=== PATIENT | female | born 1980 | race American Indian/Alaskan Native ===

== ENCOUNTER 2016-12-18 19:42 | Emergency (ER) | payer SELFPAY ==
[2016-12-18 21:08] LABS: Bilirubin,Urine NEG (Negative); Blood,Urine LG (Negative); Ketones,Urine NEG (Negative); Leukocyte Esterase,Urine NEG (Negative); Mucus,Urine 2+ /HPF; Nitrite,Urine NEG (Negative)
[2016-12-18] MEDS ORDERED: TORADOL IM ONE (23:29)
--- NOTE | 2016-12-18 23:30 | Emergency Department Report ---
ED Back Pain/Injury HPI - General Chief Complaint: Back Pain/Injury Stated Complaint: BACK/HIP PAIN Time Seen by Provider: 12/18/16 22:05 Source: patient Limitations: No Limitations - History of Present Illness Initial Comments: Patient here complaining of back. That's radiated down her back to her right side. This started yesterday. Denies any injury she's had similar incident in the past. Denies any urinary burning frequency or urgency. Denies any nausea or vomiting. Denies any abdominal pain. Denies any vaginal discharge or bleeding. Patient is currently on her menses that started 12/16/2016. Pain is described as 8 out of 10 and a kin with radiation down her right side. She says she tried [id number] pain medication but it didn't help. Denies any numbness or tingling to extremities. Denies any nausea or vomiting. Denies any fall or direct trauma. MD Complaint: back pain Onset/Timin -: days(s) Similar Symptoms Previously: Yes Place: home Radiation: other (right thigh) Severity: severe Severity scale (0 -10): 8 Quality: aching Consistency: constant Improves With: immobilization Worsens With: movement Context: unknown Associated Symptoms: denies: confusion, weakness, chest pain, numbness, difficulty walking, cough, difficulty urinating, diaphoresis, incontinence, fever/chills, constipation, headaches, abdominal pain, loss of appetite, malaise , nausea/vomiting, rash, seizure, shortness of breath, syncope Treatments Prior to Arrival: NSAIDS - Related Data Previous Rx's Medication Instructions Recorded Last Taken Type Naproxen [Naprosyn TAB] 500 mg PO BID PRN #10 tablet 12/19/16 Unknown Rx Allergies Allergy/AdvReac Type Severity Reaction Status Date / Time No Known Allergies Allergy Unverified 12/18/16 20:21 ED Review of Systems ROS: Stated complaint: BACK/HIP PAIN Other details as noted in HPI Comment: All other systems reviewed and negative Constitutional: denies: chills, fever ENT: denies: ear pain, throat pain, epistaxis, congestion Respiratory: no symptoms reported Cardiovascular: denies: chest pain, palpitations, edema, syncope Gastrointestinal: denies: abdominal pain, nausea, vomiting, diarrhea, constipation Genitourinary: denies: urgency, dysuria, frequency, hematuria, discharge, abnormal menses, dyspareunia Musculoskeletal: back pain, arthralgia. denies: joint swelling, myalgia Skin: denies: rash Neurological: denies: headache, weakness, numbness, paresthesias, confusion, abnormal gait, vertigo ED Past Medical Hx - Past Medical History Previous Medical History?: No - Surgical History Past Surgical History?: Yes Additional Surgical History: tubiligation - Family History Family history: no significant - Social History Smoking Status: Never Smoker Substance Use Type: None - Medications Home Medications: Home Medications Medication Instructions Recorded Confirmed Last Taken Type Naproxen [Naprosyn TAB] 500 mg PO BID PRN #10 tablet 12/19/16 Unknown Rx ED Physical Exam - General Limitations: No Limitations General appearance: alert, in no apparent distress - Head Head exam: Present: atraumatic, normocephalic, normal inspection - Eye Eye exam: Present: normal appearance, PERRL, EOMI. Absent: periorbital swelling , periorbital tenderness Pupils: Present: normal accommodation - ENT ENT exam: Present: normal exam, normal orophraynx, mucous membranes moist, TM's normal bilaterally, normal external ear exam - Neck Neck exam: Present: normal inspection, full ROM. Absent: tenderness, meningismus, lymphadenopathy - Respiratory Respiratory exam: Present: normal lung sounds bilaterally. Absent: respiratory distress, chest wall tenderness - Cardiovascular Cardiovascular Exam: Present: regular rate, normal rhythm, normal heart sounds - GI/Abdominal GI/Abdominal exam: Present: soft, normal bowel sounds. Absent: distended, tenderness, guarding, rebound, rigid - Extremities Exam Extremities exam: Present: normal inspection, full ROM, normal capillary refill , other (patient with no clubbing cyanosis or edema to extremities. Capillary refill is less than 3 seconds. +2 pulses to extremities. No neurovascular compromise. Good color, sensation temperature movement extremity. +5/5 strength in all extremities. No joint deformity, crepitus or effusion.). Absent: tenderness, pedal edema, joint swelling, calf tenderness - Back Exam Back exam: Present: normal inspection, full ROM. Absent: tenderness, CVA tenderness (R), CVA tenderness (L), muscle spasm, paraspinal tenderness, vertebral tenderness, rash noted - Expanded Back Exam Expanded Back exam: Absent: saddle anesthesia Back exam: Negative Straight Leg Raising: Left, Right - Neurological Exam Neurological exam: Present: alert, oriented X3, normal gait. Absent: motor sensory deficit, reflexes normal - Expanded Neurological Exam Expanded Neurological exam: Absent: innattentive, memory loss-remote event, memory loss- recent event, ataxia, receptive aphasia, expressive aphasia, total aphasia, tremor, protecting the airway Patient oriented to: Present: person, place, time Speech: Present: fluid speech Cranial nerves: EOM's Intact: Normal, Gag Reflex: Normal, Tongue Deviation: Normal, Nystagmus: Normal, Facial Sensation: Normal Cerebellar function: Romberg: Normal Upper motor neuron: Pronator Drift: Normal, Sensory Extinction: Normal Sensory exam: Upper Extremity Light Touch: Normal, Upper Extremity Temperature: Normal, UE 2 Point Discrimination: Normal, Lower Extremity Light Touch: Normal, Lower Extremity Temperature: Normal, LE 2 Point Discrimination: Normal Motor strength exam: RUE: 5, LUE: 5, RLE: 5, LLE: 5 DTR: bicep (R): 2+, bicep (L): 2+, tricep (R): 2+, tricep (L): 2+, knee (R): 2+ , knee (L): 2+, ankle (R): 2+, ankle (L): 2+ Best Eye Response ([place]): (4) open spontaneously Best Motor Response ([place]): (6) obeys commands Best Verbal Response ([place]): (5) oriented [place] Total: 15 - Psychiatric Psychiatric exam: Present: normal affect, normal mood - Skin Skin exam: Present: warm, dry, intact, normal color. Absent: rash ED Course Vital Signs 12/18/16 12/19/16 20:17 01:42 Temperature 98.3 F 97.8 F Pulse Rate 82 89 Respiratory 18 16 Rate Blood Pressure 115/75 Blood Pressure 128/87 [Right] O2 Sat by Pulse 100 100 Oximetry - Reevaluation(s) Reevaluation #1: 12/19/16 01:25 Patient given Toradol 60 mg IM which relieved her back pain. ED Medical Decision Making - Lab Data Lab Results 12/18/16 Range/Units 20:30 Urine Color Yellow (Yellow) Urine Turbidity Clear (Clear) Urine pH 6.0 (5.0-7.0) Ur Specific [place] 1.028 (1.003-1.030) Urine Protein 100 mg/dl (Negative) mg/dL Urine Glucose (UA) Neg (Negative) mg/dL Urine Ketones Neg (Negative) mg/dL Urine Blood Lg (Negative) Urine Nitrite Neg (Negative) Ur Reducing Substances Not Reportable Urine Bilirubin Neg (Negative) Urine Ictotest Not Reportable Urine Urobilinogen 2.0 (<2.0) mg/dL Ur Leukocyte Esterase Neg (Negative) Urine WBC (Auto) 2.0 (0.0-6.0) /HPF Urine RBC (Auto) 174.0 (0.0-6.0) /HPF U Epithel Cells (Auto) 5.0 (0-13.0) /HPF Urine Mucus 2+ /HPF Urine HCG, Qual Negative (Negative) Patient will large amount of blood in her urine because she is currently on her menses - Radiology Data Radiology results: report reviewed The skin of the lumbar spine reveal no acute fracture or subluxation. - Medical Decision Making ED course: Patient here complaining of lower back pain that radiated down to her right thigh area. She has similar incidents in the past. Patient is currently on her period no previous injury or blunt trauma injury. Patient was treated with Toradol which helped her pain in emergency room. Diagnostic and labs: CT scan of the lumbar spine revealed no acute findings Review of previous visits. No previous visits the emergency room. Assessment: Acute lumbar radiculopathy, acute lower back pain Plan follow-up; patient was given Toradol 60 mg IM in emergency room which relieved her pain. Discussed with her that she will need follow-up with orthopedic doctor was Dr. Love for management of her back pain that is radiating down her right thigh. Discussed the patient regarding 5 bright and ovarian cysts. She doesn't know if she has a fibroid and she's never been told that she has ovarian cyst but I told her that if she has a fibroid the skin causes her to have radiating pain in her leg and also menstrual cycle can cause her to have pain in her back with some times radiation to leg. I discussed the patient this will need to be followed on an outpatient basis with her [facility] which she does have one. Patient was understanding of discharge instruction and treatment plan and discharged home with prescription for naproxen and to follow-up with Dr. Love orthopedics and [facility] which would be my [facility]. Discharged home from emergency room in stable condition. Critical care attestation.: If time is entered above; I have spent that time in minutes in the direct care of this critically ill patient, excluding procedure time. ED Disposition Clinical Impression: Lumbar radiculopathy Back pain Qualifiers: Back pain location: low back pain Chronicity: acute Back pain laterality: bilateral Sciatica presence: with sciatica Sciatica laterality: sciatica of right side Qualified Code(s): M54.41 - Lumbago with sciatica, right side Disposition: TO HOME OR SELFCARE Is pt being admited?: No Does the pt Need Aspirin: No Condition: Stable Instructions: Lumbar Radiculopathy (ED), Back Pain (ED) Additional Instructions: Increase fluid intake Take medication as prescribed . please do not drive or operate heavy machinery while taking these medications. Easy diet consists of banana, applesauce ,Rice and toast. These follow-up with orthopedic doctor as instructed. Please follow up with [facility] as instructed Prescriptions: Naproxen [Naprosyn TAB] 500 mg PO BID PRN #10 tablet PRN Reason: Pain Referrals: PRIMARY CARE, [Primary Care Provider] - 2-3 Days [facility] [Provider Group] - 3-5 Days DOREEN LOVE MD [Staff Physician] - 3-5 Days Forms: Work/School Release Form(ED)
--- NOTE | 2016-12-19 00:51 | Cat Scan Report ---
FINAL REPORT PROCEDURE: CT LUMBAR SPINE WO CON TECHNIQUE: Computerized axial tomography of the lumbar spine was performed from T12 to the sacrum without contrast material. HISTORY: lumbar radiculopathy COMPARISON: No prior studies are available for comparison. FINDINGS: L1-2: The disc is normal. No spinal canal stenosis.. L2-3: The disc is normal. No spinal canal stenosis.. L3-4: The disc is normal. No spinal canal stenosis.. L4-5: The disc is normal. No spinal canal stenosis.. L5-S1: The disc is normal. No spinal canal stenosis.. Other: The alignment of the vertebral segments is normal. The heights of the vertebral bodies and the disc spaces are maintained. The spinal canal is adequate at all levels.. IMPRESSION: Normal CT lumbar spine
[2016-12-19 01:43] VITALS: BP 128/87
== END 2016-12-19 01:42 | disposition home or self-care (01) ==
LOC: ED 19:42
DX: M54.41 Lumbago with sciatica, right side (principal); M54.16 Radiculopathy, lumbar region; Z98.51 Tubal ligation status
CPT/HCPCS: 72131; 81001; 81025; 96372; 99284; J1885